=== PATIENT | male | born 1975 | race African-American/Black ===

== ENCOUNTER 2016-07-25 00:16 | Observation (INO) | payer SELFPAY ==
[2016-07-25] VITALS (9 sets, daily range): BP systolic 89–128; BP diastolic 53–84; PULSE 46–53; RESP 18–20; TEMP 97.4–97.7; O2SAT 97–100
[~2016-07-25] VITALS: Ht 177.8 cm; Wt 85.0 kg
[~2016-07-25 00:16] MED LIST: LORT5TAB PO; Z.0.NO CURRENT MEDS
--- NOTE | 2016-07-25 00:28 | PD ---
HPI Chief Complaint: syncope Time Seen by Provider: 00:27 Travel History International Travel<30 days: No Contact w/Intl Traveler<30days: No Traveled to known affect area: No History of Present Illness HPI 40-year-old male was brought into the emergency room by EMS after a syncopal episode at [employer]. Patient says that he was standing in the line waiting for his turn to order when he felt lightheaded and blacked out. Patient was standing for 7 minutes prior to this happening. He says that he did not have any chest pain before or after. No previous history of syncopal episode. He did have some chest pain last week which eventually went away and he did not pay much attention to it. His maternal uncle at the age of 24 from a heart attack. Patient was bradycardic upon arrival. He was awake and answering questions appropriately. He is a smoker. Denies any drug abuse history. He is not on any medications. [facility] Past Medical History Narrative Medical List of his past medical, surgical, social and family history was reviewed from the nursing note. Diminished Hearing: No Social History Alcohol Use: Yes (6 BEERS ON WEEKEND) Tobacco Use: Yes (5 CIGARS A DAY) Substance Use: No Allergies-Medications (Allergen,Severity, Reaction): Coded Allergies: No Known Allergies (Verified , 07/25/16) Comments No known drug allergies. Reported Meds & Prescriptions Reported Meds & Active Scripts Active No Active Prescriptions or Reported Medications Narrative Medication List of his home medications reviewed from the nursing note. Review of Systems Except as stated in HPI: all other systems reviewed are Neg Physical Exam Narrative GENERAL: Awake, alert, no obvious distress SKIN: Warm and dry. HEAD: Atraumatic. Normocephalic. EYES: Pupils equal and round. No scleral icterus. No injection or drainage. ENT: No nasal bleeding or discharge. Mucous membranes pink and moist. NECK: Trachea midline. No JVD. CARDIOVASCULAR: Regular rate and rhythm. No murmur appreciated. RESPIRATORY: No accessory muscle use. Clear to auscultation. Breath sounds equal bilaterally. GASTROINTESTINAL: Abdomen soft, non-tender, nondistended. Hepatic and splenic margins not palpable. MUSCULOSKELETAL: No obvious deformities. No clubbing. No cyanosis. No edema. NEUROLOGICAL: Awake and alert. No obvious cranial nerve deficits. Motor grossly within normal limits. Normal speech. PSYCHIATRIC: Appropriate mood and affect; insight and judgment normal. Data Data Last Documented VS Orders Electrocardiogram (07/25/16 00:34) Basic Metabolic Panel (Bmp) (07/25/16 00:34) Ckmb (Isoenzyme) Profile (07/25/16 00:34) Complete Blood Count With Diff (07/25/16 00:34) Magnesium (Mg) (07/25/16 00:34) Prothrombin Time / Inr (Pt) (07/25/16 00:34) Act Partial Throm Time (Ptt) (07/25/16 00:34) Troponin I (07/25/16 00:34) Chest, Single Ap (07/25/16 00:34) Ecg Monitoring (07/25/16 00:34) Bilateral Bp Monitoring (07/25/16 00:34) Iv Access Insert/Monitor (07/25/16 00:34) Oximetry (07/25/16 00:34) Oxygen Administration (07/25/16 00:34) Sodium Chloride 0.9% Flush (Ns Flush) (07/25/16 00:45) Sodium Chlorid 0.9% 500 Ml Inj (Ns 500 M (07/25/16 00:45) CKMB (07/25/16 00:41) CKMB% (07/25/16 00:41) Ct Brain W/O Iv Contrast(Rout) (07/25/16 ) Admit Order (Ed Use Only) (07/25/16 05:19) Labs Laboratory Tests Test 07/25/16 00:41 White Blood Count 5.3 TH/MM3 Red Blood Count 4.18 MIL/MM3 Hemoglobin 13.2 GM/DL Hematocrit 38.6 % Mean Corpuscular Volume 92.4 FL Mean Corpuscular Hemoglobin 31.6 PG Mean Corpuscular Hemoglobin 34.2 % Concent Red Cell Distribution Width 13.3 % Platelet Count 207 TH/MM3 Mean Platelet Volume 8.7 FL Neutrophils (%) (Auto) 22.0 % Lymphocytes (%) (Auto) 62.4 % Monocytes (%) (Auto) 11.8 % Eosinophils (%) (Auto) 3.3 % Basophils (%) (Auto) 0.5 % Neutrophils # (Auto) 1.2 TH/MM3 Lymphocytes # (Auto) 3.3 TH/MM3 Monocytes # (Auto) 0.6 TH/MM3 Eosinophils # (Auto) 0.2 TH/MM3 Basophils # (Auto) 0.0 TH/MM3 CBC Comment AUTO DIFF Differential Total Cells 100 Counted Neutrophils % (Manual) 24 % Lymphocytes % 61 % Monocytes % 10 % Eosinophils % 2 % Basophils % 3 % Neutrophils # (Manual) 1.3 TH/MM3 Differential Comment FINAL DIFF MANUAL Atypical Lymphocytes % Platelet Estimate NORMAL Platelet Morphology Comment NORMAL Ovalocytes 1+ Prothrombin Time 12.0 SEC Prothromb Time International 1.1 RATIO Ratio Activated Partial 22.9 SEC Thromboplast Time Sodium Level 143 MEQ/L Potassium Level 3.5 MEQ/L Chloride Level 107 MEQ/L Carbon Dioxide Level 29.1 MEQ/L Anion Gap 7 MEQ/L Blood Urea Nitrogen 14 MG/DL Creatinine 1.18 MG/DL Estimat Glomerular Filtration 83 ML/MIN Rate Random Glucose 83 MG/DL Calcium Level 8.7 MG/DL Magnesium Level 2.2 MG/DL Total Creatine Kinase 325 U/L Creatine Kinase MB 2.2 NG/ML Creatine Kinase MB % 0.7 % Troponin I LESS THAN 0.02 NG/ML MDM Medical Decision Making Medical Screen Exam Complete: Yes Emergency Medical Condition: Yes Medical Record Reviewed: Yes Interpretation(s) Twelve-lead EKG was reviewed by me. Normal sinus rhythm, normal axis, bradycardia, nonspecific ST-T wave changes. Rate of 46 bpm. Differential Diagnosis Syncope, symptomatically bradycardia, cardiac arrhythmia, ACS Narrative Course 4:54 AM blood test results are back and patient has significant leukocytosis on his CBC. Rest of the blood test results are within normal limits. Head CT and chest x-ray within normal limits. I will admit him for observation. Procedures EKG Prior to Arrival: Yes Diagnosis Primary Impression: Syncope and collapse Additional Impressions: Symptomatic sinus bradycardia Lymphocytosis Admitting Information Admitting Physician Requests: Observation Scripts No Active Prescriptions or Reported Kwame Salcedo MD Jul 25, 2016 00:27 Syncope and collapse Additional Impressions: Symptomatic sinus bradycardia Lymphocytosis Admitting Information Admitting Physician Requests: Observation Scripts No Active Prescriptions or Reported Kwame Salcedo MD Jul 25, 2016 00:27 Scripts No Active Prescriptions or Reported Freds Kwame Smart MD Jul 25, 2016 00:27
[2016-07-25] MEDS ORDERED: SODIUM CHLORID 0.9% 500 ML INJ 500 ML IV ONE (00:45)
[2016-07-25] MEDS ORDERED: SODIUM CHLORIDE 0.9% FLUSH 5 ML FLUSH IVF PRN (00:45)
[2016-07-25 00:57] LABS: AUTOMATED NEUTROPHIL # 1.2 TH/MM3 (1.8-7.7); BASOPHIL % 0.5 % (0.0-2.0); EOSINOPHIL # 0.2 TH/MM3 (0-0.4); EOSINOPHIL % 3.3 % (0.0-4.0); HEMATOCRIT 38.6 % (39.0-51.0); LYMPH % 62.4 % (9.0-44.0); LYMPHOCYTE # 3.3 TH/MM3 (1.0-4.8); MEAN CELL VOLUME 92.4 FL (80.0-100.0); MEAN CORPUSCULAR HEMOGLOBIN 31.6 PG (27.0-34.0); MEAN CORPUSCULAR HGB CONC 34.2 % (32.0-36.0); MONO % 11.8 % (0.0-8.0); PLATELET COUNT 207 TH/MM3 (150-450); RED BLOOD COUNT 4.18 MIL/MM3 (4.50-5.90); RED CELL DISTRIBUTION WIDTH 13.3 % (11.6-17.2); WHITE BLOOD COUNT 5.3 TH/MM3 (4.0-11.0)
[2016-07-25 01:06] LABS: HEMO FLAGS AUTO DIFF
[2016-07-25 01:19] LABS: ANION GAP 7 MEQ/L (5-15); APTT (PATIENT) 22.9 SEC (24.3-30.1); BICARBONATE 29.1 MEQ/L (21.0-32.0); BLOOD UREA NITROGEN 14 MG/DL (7-18); CHLORIDE 107 MEQ/L (98-107); GLOMERULAR FILTRATION RATE 83 ML/MIN (>89); INTERNATIONAL NORMALIZED RATIO 1.1 RATIO; MAGNESIUM 2.2 MG/DL (1.5-2.5); POTASSIUM 3.5 MEQ/L (3.5-5.1); SODIUM (NA) 143 MEQ/L (136-145)
[2016-07-25 01:24] LABS: CREATINE KINASE 325 U/L (39-308)
[2016-07-25 01:37] LABS: CKMB 2.2 NG/ML (0.5-3.6)
--- NOTE | 2016-07-25 02:11 | RADRPT ---
EXAM DATE/TIME: 07/25/2016 00:43 [facility] COMPARISON: No previous studies available for comparison. INDICATIONS : Chest pain. MEDICAL HISTORY : None. SURGICAL HISTORY : None. ENCOUNTER: Initial ACUITY: 1 day PAIN SCORE: 05/19 LOCATION: Bilateral chest FINDINGS: A single view of the chest demonstrates the lungs to be symmetrically aerated without evidence of mas s, infiltrate or effusion. The cardiomediastinal contours are unremarkable. Osseous structures are intact. CONCLUSION: No acute disease. Jon Can MD on July 25, 2016 at 2:08 Board Certified Radiologist. This report was verified electronically.
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
[2016-07-25 03:14] LABS: BASOPHILS 3 % (0-2); EOSINOPHILS 2 % (0-4); NEUTROPHIL # MANUAL DIFF 1.3 TH/MM3 (1.8-7.7); OVALOCYTES 1+ (NORMAL); PLATELET ESTIMATE SMEAR NORMAL (NORMAL); PLATELET MORPHOLOGY NORMAL (NORMAL); POLYS (SEG NEUTROPHILS) 24 % (16-70); WBC DIFF SAMPLE 100
[2016-07-25 03:15] LABS: SCAN/DIFF FINAL DIFF MANUAL
[2016-07-25] MEDS ORDERED: SODIUM CHLOR 0.9% 1000 ML INJ 1,000 ML IV SCH (05:24)
[2016-07-25] MEDS ORDERED: ACETAMINOPHEN/HYDROcodone 325 MG/5 MG TAB PO PRN (05:30)
[2016-07-25] MEDS ORDERED: SODIUM CHLOR 0.9% 1000 ML INJ 1,000 ML IV ONE (05:30)
[2016-07-25] MEDS ORDERED: ONDANSETRON HCL 4 MG/2 ML VIAL IVP PRN (05:30)
[2016-07-25] MEDS ORDERED: BISACODYL 10 MG SUPP PR PRN (05:30)
[2016-07-25] MEDS ORDERED: MORPHINE SULFATE 4 MG/ML INJ IV PRN (05:30)
[2016-07-25] MEDS ORDERED: SODIUM CHLORIDE 0.9% FLUSH 5 ML FLUSH FLUSH PRN (05:30)
[2016-07-25] MEDS ORDERED: ACETAMINOPHEN 325 MG TAB PO PRN (05:30)
[2016-07-25] MEDS ORDERED: SODIUM CHLORIDE 0.9% FLUSH 5 ML FLUSH FLUSH SCH (09:00)
--- NOTE | 2016-07-25 09:28 | EKG ---
Date Performed: 07/25/2016 Time Performed: 00:29:30 PTAGE: 40 years EKG: SINUS BRADYCARDIA VOLTAGE CRITERIA FOR LVH ABNORMAL ECG No significant change from prior el ectrocardiogram. PREVIOUS TRACING : 10/24/1993 23.31 DOCTOR: Theodore Leal Interpretating Date/Time 07/25/2016 09:27:17
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
[2016-07-25 11:03] LABS: CREATINE KINASE 256 U/L (39-308)
--- NOTE | 2016-07-25 11:29 | MB ---
cc: ROSEMARY ASH DATE OF CONSULTATION: 07/25/2016 DATE OF : 1975 REASON FOR CONSULTATION Syncope/near syncope. HISTORY OF PRESENT ILLNESS 40-year-old male with a past medical history significant for active smoker and a family history of heart disease who presented to the emergency department via EMS after having a syncopal episode in [employer]. He reports he was standing and waiting in line when all of the sudden he felt lightheaded sweating and he blacked out. Reports that he believes he lost consciousness for one or two seconds. He denied any shortness of breath, chest pain, palpitations, fevers, chills, nausea, vomiting, or diarrhea. He does report taking a new pre-workout medication called Xtreme NO. 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 He denies any drug IV use history. In the ER he was found hypotensive and bradycardic, blood work done showed lymphocytosis otherwise unremarkable. He was started on IV fluids. PAST MEDICAL HISTORY Unremarkable. PAST SURGICAL HISTORY Unremarkable. SOCIAL HISTORY He drinks alcohol socially. He has smokes cigarettes everyday. He denies any illicit drug use. ALLERGIES NO KNOWN DRUG ALLERGIES. REPORTED MEDICATIONS Xtreme NO. REVIEW OF SYSTEMS Negative except for the ones mentioned in the HPI. PHYSICAL EXAMINATION VITAL SIGNS: Pulse 48, blood pressure 106/65, respiratory rate 18, O2 sat 98% on room air. GENERAL: He is awake, alert, oriented x3, in no acute distress. NECK: No JVD. No carotid bruits. HEART: Regular rate and rhythm. No murmurs, rubs or gallops. LUNGS: Clear to auscultation bilaterally. No wheezes, no rhonchi, no rales. ABDOMEN: Soft, nontender, nondistended. Positive bowel sounds. EXTREMITIES: No cyanosis or edema. Pulses throughout. LABORATORY VALUES Hemoglobin 13, hematocrit 38, platelet count 207. He has an increase in lymphocytosis. INR 1.1. Sodium 143, potassium 3.5, BUN 14, creatinine 1.1, troponin less than 0.02. IMAGING CT of the head: Unremarkable. Chest x-ray: Unremarkable. EKG: Sinus bradycardia. ASSESSMENT AND PLAN 40-year-old male admitted after syncopal episode. He was found in the emergency department to be hypotensive and bradycardic. He was given some IV hydration with good resolution of symptoms and optimization of blood pressure. He remains afebrile and hemodynamically stable. He reports feeling better. Head CT unremarkable. I agree with observation at this point. He does not report any prodromal or postdrome syndrome or any other active cardiac complaints. He has been taking this new supplement Xtreme NO nitric oxide which might be responsible for his symptoms. Recommendations: 1. Discontinue extreme NO. 2. Get echocardiogram today 3. Continue cycling cardiac enzymes for a total of 3. 4. 24hr Holter monitor on d/c 5. Continue IV hydration 6. Get toxicology screen 7. Continue Telemetry If cardiac enzymes and echocardiogram are unremarkable, I would not pursue any further cardiac workup. Thank you for the opportunity to take part in the care of this patient. We will be available on a p.r.n. basis for any other questions or concerns. MD JOSE ANTONIO Castillo/CASH /8:03 AM /10:[address]
--- NOTE | 2016-07-25 14:23 | EC ---
Study Study Date:07/25/2016 STUDY CONCLUSIONS SUMMARY - Left ventricle: The cavity size was normal. Wall thickness was normal. Systolic function was normal. The estimated ejection fraction was in the range of 60% to 65%. Wall motion was normal; there were no regional wall motion abnormalities. - Aortic valve: Valve area: 1.35cm^2(VTI). Valve area: 1.33cm^2 (Vmax). If LV function is below 40, please consider prescribing an ACEI or ARB or document rationale for non-use. PROCEDURE DATA STUDY STATUS: Elective. Procedure: Transthoracic echocardiography. Image quality was adequate. Scanning was performed from the parasternal, apical, and subcostal acoustic windows. Study completion: The patient tolerated the procedure well. Transthoracic echocardiography. M-mode, complete 2D, complete spectral Doppler, and color Doppler. Height: Height: 70in. Weight: Weight: 186.6lb. Body mass index: BMI: 26.8kg/m^2. Body surface area: BSA: 2.03m^2. Patient status: Inpatient. CARDIAC ANATOMY LEFT VENTRICLE: The cavity size was normal. Wall thickness was normal. Systolic function was normal. The estimated ejection fraction was in the range of 60% to 65%. Wall motion was normal; there were no regional wall motion abnormalities. AORTIC VALVE: Normal thickness leaflets. Doppler: Transvalvular velocity was within the normal range. There was no stenosis. No regurgitation. Valve area: 1.35cm^2(VTI). Indexed valve area: 0.67cm^2/m^2 (VTI). Valve area: 1.33cm^2 (Vmax). Indexed valve area: 0.66cm^2/m^2 (Vmax). Mean gradient: 3mm Hg (S). AORTA: Aortic root: The aortic root was normal in size. MITRAL VALVE: Structurally normal valve. Doppler: Transvalvular velocity was within the normal range. There was no evidence for stenosis. No regurgitation. Peak gradient: 3mm Hg (D). LEFT ATRIUM: The atrium was normal in size. RIGHT VENTRICLE: The cavity size was normal. Wall thickness was normal. PULMONIC VALVE: Poorly visualized. Doppler: Transvalvular velocity was within the normal range. There was no evidence for stenosis. No regurgitation. TRICUSPID VALVE: Structurally normal valve. Doppler: Transvalvular velocity was within the normal range. No regurgitation. PULMONARY ARTERY: The main pulmonary artery was normal-sized. RIGHT ATRIUM: The atrium was normal in size. PERICARDIUM: There was no pericardial effusion. SYSTEMIC VEINS: Inferior vena cava: The vessel was mildly dilated. Patient weight: 186.6lb _Ejection fraction:_ 65-75% _Fractional shortening:_ 32% up to 5Kg 5-11.5Kg 11.6-22.9Kg 23-45Kg 45-57Kg Aortic Root 7-13 <17 13-22 17-27 17-27 LA diam 6-13 <23 24-38 33-47 37-40 RVID 10-17 7-15 7-15 7-18 8-17 LVIDd 12-22 <32 24-38 33-47 37-40 LVPW 2-4 3-6 5-7 6-8 7-8 IVS 2-4 3-6 5-7 6-8 7-8 BASIC MEASUREMENTS ADULT NORMAL Left ventricle LV internal dimension, ED, chordal 47.1 mm 43-52 level, PLAX LV internal dimension, ES, chordal 31.5 mm 23-38 level, PLAX Fractional shortening, chordal level, 33 % >29 PLAX LV posterior wall thickness, ED 6.93 mm IVS/LVPW ratio, ED 1 <1.3 Ventricular septum Septal thickness, ED 6.94 mm Aortic valve Leaflet separation 17 mm 15-26 Aorta Root diameter, ED 32 mm Left atrium Anterior-posterior dimension 25 mm Anterior-posterior dimension index 1.23 cm/m^2 <2.2 BASIC MEASUREMENTS ADULT NORMAL Aortic valve Leaflet separation 17 mm 15-26 DOPPLER MEASUREMENTS ADULT NORMAL Aortic valve Peak velocity, S 121 cm/s Mean velocity, S 84.7 cm/s VTI, S 26.4 cm Mean gradient, S 3 mm Hg Valve area, VTI 1.35 cm^2 Valve area index, VTI 0.67 cm^2/m^2 Valve area, Vmax 1.33 cm^2 Valve area index, Vmax 0.66 cm^2/m^2 Mitral valve Peak E-wave velocity 91.8 cm/s Peak A-wave velocity 39.5 cm/s Deceleration time *254 ms 150-230 Peak gradient, D 3 mm Hg Peak E/A ratio 2.3 Tricuspid valve Regurgitant peak velocity 219 cm/s Peak RV-RA gradient, S 19 mm Hg Maximal regurgitant velocity 219 cm/s Systemic veins Estimated CVP 5 mm Hg Pulmonic valve Peak velocity, S 47.4 cm/s LEGEND: Mean values are shown as u=mean value. Asterisk (*) soto values outside specified normal range. Prepared and signed by Theodore Leal [id number]
== END 2016-07-25 15:24 | disposition home or self-care (01) ==
LOC: NEPE 00:16 → NEDA 05:21 → NEPHCDU 08:09
PROVIDERS: ADMIT Hospitalist; ATTEND Hospitalist
DX: R55 Syncope and collapse (principal); R00.1 Bradycardia, unspecified; F17.210 Nicotine dependence, cigarettes, uncomplicated; D72.820 Lymphocytosis (symptomatic); Z82.49 Family history of ischemic heart disease and other diseases of the circulatory system; I95.9 Hypotension, unspecified; R11.0 Nausea; R53.1 Weakness
CPT/HCPCS: 70450; 71010; 80048; 82550; 82552; 83735; 84484; 85007; 85027; 85610; 85730; 93005; 93306; 96360; 99285; G0378; J7030; J7040; 93225; 93226